=== PATIENT | male | born 1980 | race Caucasian/White ===

== ENCOUNTER 2017-04-20 17:27 | Emergency (ER) | payer SELFPAY, OTHER ==
[2017-04-20] MEDS: DIPHTH/TET/ACEL PERTUSS (ADULT) 0.5 ML VIAL IM* (20:04)
== END 2017-04-20 20:09 | disposition home or self-care (01) ==
LOC: FTE 17:27
DX: S61.021A Laceration with foreign body of right thumb without damage to nail, initial encounter (principal); F17.210 Nicotine dependence, cigarettes, uncomplicated; W26.0XXA Contact with knife, initial encounter; Y92.9 Unspecified place or not applicable
CPT/HCPCS: 90471; 90715; 99283-25